=== PATIENT | female | born 1990 | race African-American/Black ===

== ENCOUNTER 2020-12-26 21:19 | Emergency (ER) | payer OTHER, SELFPAY ==
[2020-12-26 21:25] VITALS: BP 122/57; PULSE 107; RESP 20; TEMP 36.4; O2SAT 100
[2020-12-26 21:49] LABS: Bacteria Urine Moderate (10-30); Culture Indicated Urine Specimen Cultured; RBC Urine 0-1/HPF (0-5/HPF); Squamous Epithelial Cell Urine 1-5 /HPF (0-5/HPF); WBC Urine 10-30/HPF (0-5/HPF)
--- NOTE | 2020-12-26 22:59 | ED_ITS ---
HPI - General Adult General Chief complaint: Urogenital-Female Stated complaint: UTI Time Seen by Provider: 12/26/20 22:52 Source: patient Mode of arrival: Ambulatory History of Present Illness HPI narrative: Patient is a 30-year-old female. She is and has had a couple hours/day of dysuria. She is not having any vaginal bleeding. No cramping. No back pain. Some nausea no vomiting. Related Data Previous Rx's Medication Instructions Recorded nitrofurantoin 100 mg PO Q12H 5 Days #10 cap 12/26/20 monohydrate/macrocrystals 100 mg capsule (Macrobid) Allergies Allergy/AdvReac Type Severity Reaction Status Date / Time No Known Drug Allergies Allergy Verified 12/26/20 21:28 Review of Systems Constitutional Constitutional: Denies fever(s) Genitourinary Genitourinary: Reports dysuria and Reports urinary urgency Genitourinary: Denies abnormal vaginal bleeding, Reports dysuria, Denies pelvic pain and Reports urinary urgency Musculoskeletal Musculoskeletal: Denies back pain Neurologic Neurologic: Reports system reviewed and no additional complaints, except as doc umented Patient History Medical History Healthy adult Exam Initial Vital Signs Initial Vital Signs: Vital Signs Temperature 97.5 F L 12/26/20 21:25 Pulse Rate 107 H 12/26/20 21:25 Respiratory Rate 20 12/26/20 21:25 Blood Pressure 122/57 L 12/26/20 21:25 Pulse Oximetry 100 12/26/20 21:25 HENMT Head: normal to inspection Resp Effort & Inspection: normal respiratory effort Cardio Rate: regular rate Back/Spine/Pelvis Back: No CVA tenderness Skin General: no rashes or lesions noted Extrem General: normal to inspection Course Orders Ordered: Discontinued Medications Nitrofurantoin Macrocrystals (Nitrofurantoin Er 100 Mg Capsule) 100 mg PO NOW ONE Stop: 12/26/20 23:00 Last Admin: 12/26/20 23:07 Dose: 100 mg Documented by: BAILEE Vital Signs Vital signs: Vital Signs - 8 hr 12/26/20 21:25 Temperature 97.5 F L Pulse Rate 107 H Respiratory Rate 20 Blood Pressure 122/57 L Pulse Oximetry 100 Medical Decision Making Lab Data Labs: Lab Results 12/26/20 Range/Units 21:40 Urine RBC 0-1/hpf (0-5/HPF) Urine WBC 10-30/hpf H (0-5/HPF) Ur Squamous Epith Cells 1-5 /hpf (0-5/HPF) Urine Bacteria Moderate (10-30) H (None) Ur Culture Indicated? Specimen cultured Urine Dip Bedside Urine Glucose Negative Bedside Urine Bilirubin - Negative Bedside Urine Ketone - Negative Urine Specific [place] 1.015 Bedside Urine Occult Blood +/- Bedside Urine pH 6.0 Bedside Urine Protein - Negative Bedside Urine Urobilinogen - Negative Bedside Urine Nitrite - Negative Bedside Urine Leukocytes ++ 125 Esterase Point of care testing: Urine Dip Bedside Urine Glucose Negative Bedside Urine Bilirubin - Negative Bedside Urine Ketone - Negative Urine Specific [place] 1.015 Bedside Urine Occult Blood +/- Bedside Urine pH 6.0 Bedside Urine Protein - Negative Bedside Urine Urobilinogen - Negative Bedside Urine Nitrite - Negative Bedside Urine Leukocytes ++ 125 Esterase MDM Narrative Medical decision making narrative: Given her presentation and labs today we will treat her with antibiotics. There was a urine culture pending at the time of discharge and she was informed that we will contact her if we need to change any antibiotics. She is not having any vaginal bleeding nor cramping. I have low suspicion for pyelonephritis. Will discharge home after patient receiving a dose of antibiotics here in the emergency department. She was given strict return precautions. She expressed understanding and agreement. Discharge Plan Departure Patient Disposition: Home Clinical Impression: Urinary tract infection Instructions: DI for Urinary Tract Infection (UTI) Activity Restrictions/Additional Instructions: a prescription for antibiotics was electronically transmitted to the [facility] pharmacy. Please start taking them as directed tomorrow. Also contact your primary doctor in your OB provider for follow-up. Return to the emergency department for any new or worsening symptoms Prescriptions: New nitrofurantoin monohyd/m-cryst [Macrobid] 100 mg capsule 100 mg PO Q12H 5 Days Qty: 10 RF: 0
[2020-12-26] MEDS: NITROFURANTOIN ER 100 MG CAPSULE PO (23:07)
[2020-12-26 23:20] VITALS: BP 120/61; PULSE 94; RESP 16; O2SAT 99
== END 2020-12-26 23:22 | disposition home or self-care (01) ==
PROVIDERS: Emergency Provider Emergency Medicine
DX: N39.0 Urinary tract infection, site not specified (principal)
CPT/HCPCS: 81003; 81015; 87077; 87086; 87186; 99283

== ENCOUNTER → 2021-07-18 16:04 | Outpatient (CLI) | payer OTHER, SELFPAY ==
--- NOTE | 2021-07-18 | DI.MRI.S_ITS ---
PROCEDURE: MR LUMBAR SPINE WO CON INDICATIONS: LOWER BACK PAIN TECHNIQUE: Noncontrast sagittal T1 spin echo and T2 fast echo, sagittal STIR, axial T1 and T2 fast spin echo through the lumbar spine. In cases with scoliosis, additional coronal T2 fast spin echo may be performed. COMPARISON: [facility], CR, XR LUMBAR SPINE WITH OBLIQUES PLUS FLEXION EXTENSION, 07/05/2021, 13:55. FINDINGS: Image quality: This examination is limited by involuntary motion artifact. Images are repeated, with some improvement. Alignment and Curvature: There is normal bony alignment. Bone Marrow: Marrow is of normal overall signal. No acute vertebral body compression fractures. Spinal Cord: Conus medullaris terminates at the L1 level. Visualized cord demonstrates normal signal and size. Paraspinous Soft Tissues: No paravertebral masses. This patient has transitional lumbar anatomy. For the purposes of this examination, the level with the last well seen pair of ribs is considered to be T12. By this numbering scheme, the L5 level is transitional and partially sacralized. The partially sacralized nature of L5 is better seen on the recent prior plain films. There is a transitional/ rudimentary L5-S1 disc. T12-L1: Normal appearance. L1-L2: Normal appearance. L2-L3: No significant abnormality is seen. L3-L4: The disc height and disk signal are well-preserved. Mild to moderate disc bulge is seen, which is eccentric to the right. Moderate facet joint hypertrophy is seen. There is [id number] right-sided and no left-sided neural foraminal narrowing. No central canal narrowing is seen. L4-L5: The disc height is well-preserved. Loss of disc signal is seen at this level. Moderate disc bulge is seen, which is eccentric to the left. There is a central/left disc protrusion seen. There is at least moderate bilateral neural foraminal narrowing seen. Mild central canal narrowing is seen. L5-S1: There is a transitional, rudimentary disc seen at this level. No significant neural or central canal can be seen. IMPRESSION: Focal L4-L5 degenerative change. Transitional lumbar anatomy, with a partially sacralized L5 level and a rudimentary, transitional L5-S1 disc. Dictated by: Tyrone Isabel M.D. on 07/18/2021 at 17:02 Approved by: Tyrone Isabel M.D. on 07/18/2021 at 17:05
== END ==
PROVIDERS: Referring Provider Physical Medicine & Rehabilitation Pain Medicine; Visit Provider Physical Medicine & Rehabilitation Pain Medicine
DX: M54.50 Low back pain, unspecified (principal); M51.36 Other intervertebral disc degeneration, lumbar region; M48.061 Spinal stenosis, lumbar region without neurogenic claudication
CPT/HCPCS: 72148